=== PATIENT | female | born 1985 | race Caucasian/White ===

== ENCOUNTER 2022-05-20 11:09 | Emergency (ER) | payer OTHER ==
[~2022-05-20] VITALS: Ht 172.7 cm; Wt 86.0 kg
[2022-05-20 11:16] VITALS: BP 135/68
== END 2022-05-20 12:02 | disposition home or self-care (01) ==
LOC: ER 11:09
DX: S13.4XXA Sprain of ligaments of cervical spine, initial encounter (principal); M54.81 Occipital neuralgia; V89.2XXA Person injured in unspecified motor-vehicle accident, traffic, initial encounter; Y93.89 Activity, other specified; Y92.89 Other specified places as the place of occurrence of the external cause; Y99.8 Other external cause status
CPT/HCPCS: 99282